=== PATIENT | male | born 1985 | race Caucasian/White ===

== ENCOUNTER 2016-09-21 09:08 | Day surgery (SDC) | payer OTHER ==
[~2016-09-21] VITALS: Ht 175.3 cm; Wt 78.5 kg
[2016-09-21 09:48] VITALS: BP 134/84; PULSE 65; TEMP 97.8
[2016-09-21 10:55] VITALS: BP 123/86; PULSE 70; TEMP 97.8
[2016-09-21 11:10] VITALS: BP 118/77; PULSE 64
[2016-09-21 12:38] VITALS: BP 122/87; PULSE 74
== END 2016-09-21 11:40 | disposition home or self-care (01) ==
LOC: SDCO 09:08
DX: Z80.0 Family history of malignant neoplasm of digestive organs (principal)
CPT/HCPCS: OP; J2250; J3010; J7030

== ENCOUNTER → 2020-09-09 | Outpatient (CLI) | payer OTHER ==
[~2020-09-09] VITALS: Ht 175.3 cm; Wt 80.2 kg
[2020-09-09 09:12] VITALS: BP 131/76; PULSE 72
[2020-09-09 10:25] VITALS: BP 134/92; PULSE 67
== END ==
LOC: COL.RAD 08:55
DX: R22.1 Localized swelling, mass and lump, neck (principal)